=== PATIENT | female | born 1960 | race Caucasian/White ===

== ENCOUNTER 2017-04-19 18:55 | Emergency (ER) | payer BC, OTHER ==
[2017-04-19] MEDS: IBUPROFEN 600 MG TAB PO (20:09)
== END 2017-04-19 21:12 | disposition home or self-care (01) ==
LOC: M ED 18:55
DX: S30.0XXA Contusion of lower back and pelvis, initial encounter (principal); S06.0X9A Concussion with loss of consciousness of unspecified duration, initial encounter; W00.9XXA Unspecified fall due to ice and snow, initial encounter; Y92.099 Unspecified place in other non-institutional residence as the place of occurrence of the external cause; Y93.9 Activity, unspecified; I10 Essential (primary) hypertension; K21.9 Gastro-esophageal reflux disease without esophagitis; F41.9 Anxiety disorder, unspecified; F32.9 Major depressive disorder, single episode, unspecified; Z79.899 Other long term (current) drug therapy; Z88.2 Allergy status to sulfonamides
CPT/HCPCS: 70450

== ENCOUNTER → 2020-02-21 | Outpatient (REF) | payer BC ==
[~2020-02-21] MED LIST: CHLO125TA; D3-5CAP; IMIT5SPR; OMEP1CAP73; POTA10CA32; PROZ20CA11
== END ==
LOC: M LAB REF 12:33
PROVIDERS: ATTEND Physician Assistant
DX: R50.9 Fever, unspecified (principal); R05 Cough

== ENCOUNTER 2025-01-21 06:13 | Observation (INO) | payer OTHER, BC ==
[2025-01-21] VITALS (8 sets, daily range): BP systolic 102–122; BP diastolic 57–67; TEMP 98–100; O2SAT 95–99
[~2025-01-21] VITALS: Ht 172.7 cm; Wt 73.9 kg
[~2025-01-21 06:13] MED LIST changes: +BUSP1TAB PO; +CALC600T60 PO; +D 101000 PO; +FLUO60TA PO; +FLUTISP NARES; +HYDR-3363 PO; +LOSA50TA28 PO; +OMEP40CA5 PO; -POTA10CA32; +POTA10CA70; -PROZ20CA11; +PROZ20CA12; +RIME75TA SL
[2025-01-21] MEDS ORDERED: LR 1,000 ML IV SCH (06:30)
[2025-01-21 06:59] LABS: PLATELET COUNT, AUTOMATED 308 10^3/uL (150-450)
[2025-01-21] MEDS ORDERED: ROCURONIUM BROMIDE 50MG/5ML VIAL As Ordered ONE (07:14)
[2025-01-21] MEDS ORDERED: LIDOCAINE 2% 100 MG/5 ML SDV (FOR ANES.) As Ordered ONE (07:14)
[2025-01-21] MEDS ORDERED: MIDAZOLAM INJ 2 MG/2 ML VIAL As Ordered ONE (07:14)
[2025-01-21 07:31] LABS: CALCIUM LEVEL 8.7 MG/DL (8.3-10.6); CARBON DIOXIDE LEVEL 28.0 MMOL/L (20-31); CHLORIDE LEVEL 104.0 MMOL/L (98-107); CREATININE FOR GFR 0.85 MG/DL (0.55-1.30); GLOMERULAR FILTRATION RATE 77.4 (>45); POTASSIUM SERUM 3.9 MMOL/L (3.5-5.1); SODIUM LEVEL 141.0 MMOL/L (136-145)
[2025-01-21] MEDS: ceFAZolin SOD 2 GM IV ONCE IV ONE (07:36)
[2025-01-21] MEDS ORDERED: dexAMETHasone 4 MG/ML 1 ML VIAL As Ordered ONE (07:45)
[2025-01-21] MEDS ORDERED: ONDANSETRON 4MG/2ML VIAL As Ordered ONE (08:04)
[2025-01-21] MEDS ORDERED: HYDROmorphone HCL 2 MG/ML 1 ML VIAL As Ordered ONE (08:04)
[2025-01-21] MEDS ORDERED: KETOROLAC 30 MG/ML 1 ML VIAL As Ordered ONE (08:04)
[2025-01-21] MEDS ORDERED: ACETAMINOPHEN 1000MG/100ML IV BAG As Ordered ONE (08:05)
[2025-01-21] MEDS ORDERED: SUGAMMADEX SODIUM 200 MG/2 ML VIAL As Ordered ONE (08:08)
[2025-01-21] MEDS ORDERED: GLYCOPYRROLATE INJ 0.2 MG/ML 2 ML VIAL As Ordered ONE (08:08)
[2025-01-21] MEDS ORDERED: PHENYLephrine 500MCG 5ML (100MCG/ML) SYRINGE As Ordered ONE (08:09)
[2025-01-21] MEDS ORDERED: HYDROMORPHONE HCL 0.5 MG/0.5 ML SYRINGE IV PRN (09:45)
[2025-01-21] MEDS: LR 1,000 ML IV SCH ×2 (09:45→13:11)
[2025-01-21] MEDS ORDERED: ONDANSETRON 4MG/2ML VIAL IV PRN ×2 (09:45→11:05)
[2025-01-21] MEDS: LR 500 ML in IV 1 EA IV ONE (10:25)
[2025-01-21] MEDS ORDERED: IBUP600T42 PO (10:28)
[2025-01-21] MEDS ORDERED: OXYC1TAB23 PO (10:31)
[2025-01-21] MEDS ORDERED: COLA100C5 PO (10:32)
[2025-01-21] MEDS: LABETALOL 100 MG/20 ML VIAL IV STA (11:03)
[2025-01-21] MEDS ORDERED: PERCOCET 5MG/325MG TAB PO PRN (11:05)
[2025-01-21] MEDS ORDERED: HOME MED LIST COMPLETE! XX SCH (17:20)
[2025-01-21] MEDS: DOCUSATE SODIUM 100 MG CAPSULE PO SCH (21:00)
[2025-01-22] VITALS: BP 116/63; TEMP 99.4; O2SAT 94
[2025-01-22 04:00] VITALS: BP 132/68; TEMP 100.2; O2SAT 97
[2025-01-22] MEDS: PERCOCET 5MG/325MG TAB PO PRN (04:11)
[2025-01-22 05:11] VITALS: O2SAT 95
[2025-01-22] MEDS: KETOROLAC 30 MG/ML 1 ML VIAL IV PRN (07:13)
== END 2025-01-22 08:00 | disposition home or self-care (01) ==
LOC: M SDC 06:13 → EEVIPCON 06:14 → M RR INP 06:14 → M PED 12:15
PROVIDERS: ADMIT Specialist; ATTEND Specialist
DX: N81.2 Incomplete uterovaginal prolapse (principal); D25.9 Leiomyoma of uterus, unspecified; I10 Essential (primary) hypertension; K21.9 Gastro-esophageal reflux disease without esophagitis; G43.909 Migraine, unspecified, not intractable, without status migrainosus; F41.9 Anxiety disorder, unspecified; Z79.899 Other long term (current) drug therapy; Z88.2 Allergy status to sulfonamides
CPT/HCPCS: 36415; 57240; 57283; 58571; 80048; 85027; 86850; 86900; 86901; 88302; 88307; 93005; 96374; J0131; J0665; J0688; J1100; J1171; J1596; J1885; J1920; J2250; J2371; J2405; J2765; J3010; S2900